=== PATIENT | female | born 1950 | race Caucasian/White ===

== ENCOUNTER 2017-08-09 01:39 | Emergency (ER) | payer MEDICARE ==
[~2017-08-09] VITALS: Ht 167.6 cm; Wt 67.8 kg
[2017-08-09 01:43] VITALS: BP 148/104
== END 2017-08-09 02:36 | disposition other institution (70) ==
LOC: ED 02:27
DX: B86 Scabies (principal); F17.200 Nicotine dependence, unspecified, uncomplicated
CPT/HCPCS: 99283

== ENCOUNTER 2017-08-13 00:13 | Emergency (ER) | payer MEDICARE ==
[~2017-08-13] VITALS: Ht 167.6 cm; Wt 69.3 kg
[2017-08-13 00:16] VITALS: BP 134/79
[2017-08-13] MEDS ORDERED: DIPH,PERTUSS(ACELL),TET VAC/PF 0.5 ML IM-VACC ONE ×2 (00:56→01:00)
== END 2017-08-13 01:09 | disposition home or self-care (01) ==
LOC: ED 00:36
DX: B86 Scabies (principal); F17.210 Nicotine dependence, cigarettes, uncomplicated
CPT/HCPCS: 90471; 90715